=== PATIENT | female | born 1990 | race Hispanic/Latino ===

== ENCOUNTER 2017-11-05 19:34 | Emergency (ER) | payer OTHER ==
[2017-11-05 19:47] VITALS: RESP 18; TEMP 98.2; O2SAT 100
--- NOTE | 2017-11-05 20:20 | ED PDOC ---
Arrival/HPI - General Chief Complaint: Female Genitourinary Time Seen by Provider: 11/05/17 19:40 Historian: Patient - History of Present Illness Narrative History of Present Illness (Text): 11/05/17 20:18 A 26 year old female, who denies any significant past medical history, presents to the emergency department approximately 7 weeks , confirmed by outpatient test, for noticing occasional brown vaginal discharge. The patient states she currently has no care and is scheduled to see a doctor in a couple of days. The patient denies seeing any bright bloody discharge, pain, urinary complaints, fever, chills, or any other complaints at this time. AB:1 Time/Duration: 4-6 hours Symptom Onset: Sudden Symptom Course: Unchanged Activities at Onset: Light Context: Home Past Medical History - Provider Review Nursing Documentation Reviewed: Yes - Infectious Disease Hx of Infectious Diseases: None - Psychiatric Hx Substance Use: No - Surgical History Hx Dilation and Curettage: Yes (oct 2015) - Anesthesia Hx Anesthesia: Yes Hx Anesthesia Reactions: No Family/Social History - Physician Review Nursing Documentation Reviewed: Yes Family/Social History: No Known Family HX Smoking Status: Never Smoked Hx Alcohol Use: No Hx Substance Use: No Allergies/Home Meds Allergies/Adverse Reactions: Allergies No Known Allergies Allergy (Verified 11/05/17 19:43) Home Medications: Home Meds Medication Instructions Recorded Confirmed Vit No.126/Iron/Folic 1 tab PO DAILY 11/05/17 11/05/17 [Classic Tablet] Review of Systems - Physician Review All systems were reviewed & negative as marked: Yes - Review of Systems Constitutional: absent: Fevers Gastrointestinal: absent: Abdominal Pain Genitourinary Female: Vaginal Discharge. absent: Dysuria, Hematuria, Urine Output Changes, Vaginal Bleeding Physical Exam Vital Signs Reviewed: Yes Vital Signs Temp Pulse Resp BP Pulse Ox 11/05/17 19:46 98.2 F 100 H 18 123/82 100 Temperature: Afebrile Blood Pressure: Normal Pulse: Tachycardic Respiratory Rate: Normal Appearance: Positive for: Well-Appearing, Non-Toxic, Comfortable Pain Distress: None Mental Status: Positive for: Alert and Oriented X 3 - Systems Exam Head: Present: Atraumatic, Normocephalic Pupils: Present: PERRL Extroacular Muscles: Present: EOMI Conjunctiva: Present: Normal Mouth: Present: Moist Mucous Membranes Neck: Present: Normal Range of Motion Respiratory/Chest: Present: Clear to Auscultation, Good Air Exchange. No: Respiratory Distress, Accessory Muscle Use Cardiovascular: Present: Regular Rate and Rhythm, Normal S1, S2. No: Murmurs Abdomen: Present: Normal Bowel Sounds. No: Tenderness, Distention, Peritoneal Signs Genitourinary/Pelvic Exam: Present: Normal External Genitalia, Cervical os Closed. No: Vaginal Discharge, Vaginal Bleeding, Vaginal Lesions, Adenexal Tenderness, Adenexal Mass, Cervical Motion Tendernes Back: Present: Normal Inspection Upper Extremity: Present: Normal Inspection. No: Cyanosis, Edema Lower Extremity: Present: Normal Inspection. No: Edema Neurological: Present: GCS=15, CN II-XII Intact, Speech Normal Skin: Present: Warm, Dry, Normal Color. No: Rashes Psychiatric: Present: Alert, Oriented x 3, Normal Insight, Normal Concentration Medical Decision Making ED Course and Treatment: 11/05/17 20:20 Impression: A 26 year old female with brown vaginal discharge. Plan: -- Labs -- Transvaginal US -- Urinalysis -- Reassess and disposition Progress Notes: 11/05/17 22:43 Transvaginal US shows: Gestation: Single intrauterine . Yolk sac and pole noted within the gestational sac. Estimated gestational age based on mean sac diameter is 5 weeks 6 days. No heart rate identified at this time. Uterus/cervix: Retroverted uterus. No myometrial mass. Ovaries: Bilateral Doppler flow. No acute abnormality as visualized. Free fluid: No free fluid. IMPRESSION: Single intrauterine . Yolk sac and pole noted within the gestational sac. Estimated gestational age based on mean sac diameter is 5 weeks 6 days. No heart rate identified at this time. Correlate clinically. Followup imaging recommended. 11/05/17 22:57 On re-evaluation, patient is in no acute distress. I have discussed the results and plan with the patient, who expresses understanding. Patient in agreement with plan to be discharged home. Patient is stable for discharge. Patient was instructed to follow up with physician or return if symptoms worsen or new concerning symptoms arise. - Lab Interpretations Lab Results: 11/05/17 20:23 11/05/17 20:23 Lab Results 11/05/17 21:10: Blood Type Confirm O POSITIVE 11/05/17 20:23: Beta HCG, Quant 2716.40 H 11/05/17 20:23: Blood Type O POSITIVE, Antibody Screen Negative, BBK History Checked No verified bt 11/05/17 20:23: WBC 7.7, RBC 4.56, Hgb 13.3, Hct 39.1, MCV 85.7, MCH 29.2, MCHC 34.0, RDW 13.2, Plt Count 328, MPV 9.5 11/05/17 20:23: Sodium 139, Potassium 3.9, Chloride 105, Carbon Dioxide 22, Anion Gap 16, BUN 10, Creatinine 0.6 L, Est GFR ( Amer) > 60, Est GFR ( Non-Af Amer) > 60, Random Glucose 94, Calcium 9.3, Total Bilirubin 0.4, AST 27, ALT 29, Alkaline Phosphatase 53, Total Protein 7.3, Albumin 4.4, Globulin 2.9, Albumin/Globulin Ratio 1.5 11/05/17 20:10: Urine Color Yellow, Urine Appearance Sl cloudy, Urine pH 7.0, Ur Specific [place] <= 1.005, Urine Protein Negative, Urine Glucose (UA) Negative, Urine Ketones Negative, Urine Blood Moderate H, Urine Nitrate Negative , Urine Bilirubin Negative, Urine Urobilinogen 0.2, Ur Leukocyte Esterase Negative, Urine RBC 10 - 15, Urine WBC 2 - 5, Ur Epithelial Cells 4 - 5, Urine Bacteria Many, Urine HCG, Qual Positive I have reviewed the lab results: Yes - RAD Interpretation Radiology Orders: 11/05/17 19:55 OB TRANSVAGINAL [US] [place] [facility] Officer: Radiologist - Scribe Statement The provider has reviewed the documentation as recorded by the Maritza Gordon Provider Scribe Attestation: All medical record entries made by the Scribe were at my direction and personally dictated by me. I have reviewed the chart and agree that the record accurately reflects my personal performance of the history, physical exam, medical decision making, and the department course for this patient. I have also personally directed, reviewed, and agree with the discharge instructions and disposition. Disposition/Present on Arrival - Present on Arrival Any Indicators Present on Arrival: No History of DVT/PE: No History of Uncontrolled Diabetes: No Urinary Catheter: No History of Decub. 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
[2017-11-05 20:26] LABS: URINE BILIRUBIN NEGATIVE (NEGATIVE); URINE BLOOD MODERATE (NEGATIVE); URINE GLUCOSE (UA) NEGATIVE (NEGATIVE); URINE LEUKOCYTE ESTERASE NEGATIVE Leu/uL (NEGATIVE); URINE NITRATE NEGATIVE (NEGATIVE); URINE PROTEIN NEGATIVE mg/dL (<30 mg/dL); URINE UROBILINOGEN 0.2 E.U./dL (<1 E.U./dL)
[2017-11-05 20:27] LABS: URINE APPEARANCE SL CLOUDY (CLEAR); URINE COLOR YELLOW (YELLOW)
[2017-11-05 20:37] LABS: HEMOGLOBIN 13.3 g/dL (12.0-16.0); MEAN CELL VOLUME 85.7 fl (80.0-105.0); MEAN CORPUSCULAR HEMOGLOBIN 29.2 pg (25.0-35.0); MEAN PLATELET VOLUME 9.5 fl (7.0-11.0); RBC 4.56 10^6/uL (3.5-6.1); RED CELL DISTRIBUTION WIDTH 13.2 % (11.5-14.5); WHITE BLOOD COUNT 7.7 10^3/ul (4.5-11.0)
[2017-11-05 20:44] LABS: HCG,QUALITATIVE URINE POSITIVE (NEGATIVE); URINE BACTERIA MANY (NEG)
[2017-11-05 20:50] LABS: ALB/GLOB RATIO 1.5 (1.1-1.8); ALBUMIN 4.4 g/dL (3.0-4.8); ALT/SGPT 29 U/L (7-56); AST/SGOT 27 U/L (14-36); BLOOD UREA NITROGEN 10 mg/dL (7-21); CALCIUM 9.3 mg/dL (8.4-10.5); GFR AFRICAN-AMERICAN > 60; GFR NON-AFRICAN AMERICAN > 60
--- NOTE | 2017-11-05 22:23 | US ---
EXAM: US CLINICAL HISTORY: 26 years old, female; Signs and symptoms; Lmp or gestational age (in weeks): 09/14/2017; Other: Discharge; TECHNIQUE: Real-time transabdominal and transvaginal obstetrical ultrasound of the maternal pelvis and a first trimester with image documentation. Transvaginal imaging was used for better evaluation of the fetus and adnexa. COMPARISON: No relevant prior studies available. FINDINGS: Gestation: Single intrauterine . Yolk sac and pole noted within the gestational sac. Estimated gestational age based on mean sac diameter is 5 weeks 6 days. No heart rate identified at this time. Uterus/cervix: Retroverted uterus. No myometrial mass. Ovaries: Bilateral Doppler flow. No acute abnormality as visualized. Free fluid: No free fluid. IMPRESSION: Single intrauterine . Yolk sac and pole noted within the gestational sac. Estimated gestational age based on mean sac diameter is 5 weeks 6 days. No heart rate identified at this time. Correlate clinically. Followup imaging recommended.
[2017-11-05 23:09] VITALS: BP 125/86; PULSE 98
== END 2017-11-05 23:13 | disposition home or self-care (01) ==
LOC: ED 19:34
DX: O26.891 Other specified pregnancy related conditions, first trimester (principal); N89.8 Other specified noninflammatory disorders of vagina; Z3A.01 Less than 8 weeks gestation of pregnancy

== ENCOUNTER 2018-08-17 20:05 | Emergency (ER) | payer SELFPAY | END 2018-08-17 21:14 | disposition left against medical advice (07) | LOC: ED 20:05 | DX: Z02.89 Encounter for other administrative examinations (principal); O46.90 Antepartum hemorrhage, unspecified, unspecified trimester ==